=== PATIENT | male | born 1995 | race Hispanic/Latino ===

== ENCOUNTER 2017-05-09 05:56 | Day surgery (SDC) | payer BC ==
--- NOTE | 2017-05-09 06:54 | ED PDOC ---
Lower Extremity Pain/Injury Time Seen by Provider: 05/09/17 06:30 Chief Complaint (Nursing): Lower Extremity Problem/Injury Chief Complaint (Provider): Lower Extremity Problem/Injury History Per: Patient History/Exam Limitations: no limitations Onset/Duration Of Symptoms: Days (x 1 week) Current Symptoms Are (Timing): Still Present Additional Complaint(s): 21 year old male with a history of right foot fracture onset 1 week ago. he was diagnosed with a fracture 1 week ago (05/01/17). patient has not beared weight on it. Dr. Mckeon sent him here for evaluation. No other complaints. PMD: Dr. Salazar Past Medical History Reviewed: Historical Data, Nursing Documentation, Vital Signs Vital Signs: Last Vital Signs Temp 98.0 F 05/09/17 06:19 Pulse 74 05/09/17 06:39 Resp 16 05/09/17 06:19 BP 122/65 05/09/17 06:19 Pulse Ox 100 05/09/17 06:19 - Medical History Other PMH: right foot fracture - Surgical History Surgical History: Tonsillectomy - Family History Family History: States: Unknown Family Hx - Social History Current smoker - smoking cessation education provided: No Alcohol: None Drugs: Denies - Home Medications Home Medications: Ambulatory Orders Medication Instructions Recorded oxyCODONE/Acetaminophen [Percocet 1 tab PO Q4 PRN 05/09/17 5/325 mg Tab] - Allergies Allergies/Adverse Reactions: Allergies Allergy/AdvReac Type Severity Reaction Status Date / Time No Known Allergies Allergy Verified 05/09/17 06:21 Review of Systems ROS Statement: Except As Marked, All Systems Reviewed And Found Negative Musculoskeletal: Positive for: Foot Pain (right ) Physical Exam - Reviewed Nursing Documentation Reviewed: Yes Vital Signs Reviewed: Yes - Physical Exam Appears: Positive for: Non-toxic, No Acute Distress Head Exam: Positive for: ATRAUMATIC, NORMOCEPHALIC Skin: Positive for: Normal Color, Warm, Dry Eye Exam: Positive for: EOMI, Normal appearance, PERRL Neck: Positive for: Normal, Painless ROM, Supple Cardiovascular/Chest: Positive for: Regular Rate, Rhythm. Negative for: Murmur Respiratory: Positive for: Normal Breath Sounds. Negative for: Respiratory Distress Gastrointestinal/Abdominal: Positive for: Normal Exam, Soft Back: Positive for: Normal Inspection. Negative for: L CVA Tenderness, R CVA Tenderness Extremity: Positive for: Tenderness, Capillary Refill (< 2 secs), Swelling ( right ankle is swollen with hematoma on dorsum of foot) Neurologic/Psych: Positive for: Alert, Oriented - Laboratory Results Result Diagrams: 05/09/17 06:59 05/09/17 06:59 - ECG O2 Sat by Pulse Oximetry: 100 (RA) Pulse Ox Interpretation: Normal Medical Decision Making Medical Decision Making: Time: 06:49 Initial Plan: foot injury --blood type and screen --CMP --CBC --PTT --Prothrombin time --Chest x-ray --Foot x-ray --urinalysis Already called Dr. Mckeon to discuss the patient's admission. Time: 716 --Orthopedic on-call consult ordered with Dr. Zac Mckeon MD --Dr. Mike BETANCUR states to admit patient once all labs are back. --Patient declined pain medications. Scribe Attestation: Documented by Kiana Pearson, acting as a scribe for Marisela Bailey MD. Provider Scribe Attestation: All medical record entries made by the Scribe were at my direction and personally dictated by me. I have reviewed the chart and agree that the record accurately reflects my personal performance of the history, physical exam, medical decision making, and the department course for this patient. I have also personally directed, reviewed, and agree with the discharge instructions and disposition. Disposition - Clinical Impression Clinical Impression: Intractable pain, Foot fracture - Patient ED Disposition Is Patient to be Admitted: Transfer of Care - Disposition Disposition: Transfer of Care Disposition Time: 07:00 Condition: STABLE Patient Signed Over To: Nayeli Levy Handoff Comments: pending labs, imaging and a call back from Mike
[2017-05-09 07:09] LABS: BASO % 0.8 % (0.0-2.0); EOS # 0.4 K/uL (0.0-0.7); EOS % 8.6 % (0.0-4.0); HEMOGLOBIN 15.2 g/dL (12.0-18.0); LYMPH # 1.8 K/uL (1.0-4.3); LYMPH % 35.4 % (20.0-40.0); MEAN CELL VOLUME 90.6 fl (80.0-94.0); MEAN CORPUSCULAR HEMOGLOBIN 30.3 pg (27.0-31.0); MEAN CORPUSCULAR HGB CONC 33.5 g/dL (33.0-37.0); MONO # 0.6 K/uL (0.0-0.8); MONO % 11.4 % (0.0-10.0); NEUT # 2.2 K/uL (1.8-7.0); NEUT % 43.8 % (50.0-75.0); NRBC % 0.1 % (0.0-0.0); RBC 5.02 Mil/uL (4.40-5.90); RED CELL DISTRIBUTION WIDTH 13.3 % (11.5-14.5); WHITE BLOOD COUNT 5.1 K/uL (4.8-10.8)
[2017-05-09 07:20] LABS: ALB/GLOB RATIO 1.3 (1.0-2.1); ALBUMIN 4.3 g/dL (3.5-5.0); ALT/SGPT 37 U/L (21-72); AST/SGOT 27 U/L (17-59); BLOOD UREA NITROGEN 12 mg/dl (9-20); CALCIUM 9.4 mg/dL (8.4-10.2); GFR AFRICAN-AMERICAN > 60; GFR NON-AFRICAN AMERICAN > 60
[2017-05-09 07:21] LABS: INR 1.1 (0.9-1.2); PARTIAL THROMBOPLASTIN TIME 28.9 Seconds (25.6-37.1); PROTHROMBIN TIME 11.8 Seconds (9.8-13.1)
[2017-05-09 07:31] LABS: SQUAMOUS EPITHIAL < 1 /hpf (0-5); URINE BILIRUBIN NEGATIVE (NEGATIVE); URINE BLOOD NEGATIVE (NEGATIVE); URINE CLARITY CLEAR (Clear); URINE COLOR YELLOW (YELLOW); URINE GLUCOSE (UA) NEG (Normal); URINE LEUKOCYTE ESTERASE NEG Leu/uL (Negative); URINE PROTEIN NEGATIVE (NEGATIVE); URINE UROBILINOGEN 0.2-1.0 mg/dL (0.2-1.0)
--- NOTE | 2017-05-09 07:43 | ED PDOC ---
- Laboratory Results Result Diagrams: 05/09/17 06:59 05/09/17 06:59 - ECG O2 Sat by Pulse Oximetry: 100 (RA) Disposition - Clinical Impression Clinical Impression: Intractable pain, Foot fracture - POA Present On Arrival: Falls Or Trauma - Disposition Referrals: Marie Bass PA-C [Primary Care Provider] - Disposition: Admitted as In-Patient Disposition Time: 07:43 Condition: STABLE Forms: [employer] (Syrian) Addendum Addendum: 05/09/17 07:[address] Pt signed out [address] Antonio pending labs.
--- NOTE | 2017-05-09 08:20 | CP.SDSHP ---
Same Day Surgery H & P - History Proposed Procedure: Right foot fifth metatarsal fracture ORIF Pre-Op Diagnosis: Right foot fifth metatarsal fracture - Previous Medical/Surgical History Pain: 2.Mild Pain Previous Surgical History: Tonsillectomy - Allergies Allergies: Allergies No Known Allergies Allergy (Verified 05/09/17 06:21) - Current Medications Current Medications: none - Physical Exam General Appearance: No acute distress Vital Signs: Vital Signs 05/09/17 05/09/17 05/09/17 06:19 06:39 07:17 Temperature 98.0 F 98.2 F Pulse Rate 72 74 68 Respiratory 16 18 Rate Blood Pressure 122/65 145/80 O2 Sat by Pulse 100 99 Oximetry 05/09/17 05/09/17 07:28 07:43 Temperature Pulse Rate Respiratory Rate Blood Pressure O2 Sat by Pulse 100 100 Oximetry Mental Status: Alert & Oriented x3 Neuro: WNL Heart: WNL Lungs: WNL GI: WNL - {Optional Preform as Required} Abdomen: WNL Integument: WNL Ortho: Other (right foot: +swelling, +ecchymosis, + tenderness, sensation intact SP/DP/TN, motor intact EHL/FHL/TA/gastroc, pedal pulse intact) ENT: WNL - Impression Impression: Patient is a 21 y/o male with a right foot fifth metatarsal fracture who presents for a left foot 5th metatarsal fx ORIF. Risks and benefits of the procedure were explained to the patient and he agrees to proceed. Pt. Evaluated Today:Candidate for Anesthesia & Procedure: Yes - Date & Time Date: 05/09/17 Time: 08:23 Short Stay Discharge - Short Stay Discharge Admitting Diagnosis/Reason for Visit: INTRACTABLE FOOT PAIN,FOOT FRACTURE Disposition: HOME/ ROUTINE Referrals: Marie Bass PA-C [Primary Care Provider] -
--- NOTE | 2017-05-09 09:35 | RAD ---
HISTORY: ankle fracture COMPARISON: No prior. FINDINGS: LUNGS: No active pulmonary disease. PLEURA: No significant pleural effusion identified, no pneumothorax apparent. CARDIOVASCULAR: Normal. OSSEOUS STRUCTURES: No significant abnormalities. VISUALIZED UPPER ABDOMEN: Normal. OTHER FINDINGS: None. IMPRESSION: No active disease.
--- NOTE | 2017-05-09 09:36 | RAD ---
PROCEDURE: Right Foot Radiographs. HISTORY: foot fracture COMPARISON: None. FINDINGS: BONES: Minimally displaced comminuted fracture of the base of the 5th metatarsal. JOINTS: Normal. SOFT TISSUES: Regional soft tissue swelling. OTHER FINDINGS: None. IMPRESSION: Minimally displaced comminuted fracture of the base of the 5th metatarsal.
--- NOTE | 2017-05-09 09:38 | CARD ---
APPROVED REPORT EKG Measurement Heart [id number] AL [id number] <Conclusion> Normal sinus rhythm Early repolarization Normal ECG
[2017-05-09] MEDS ORDERED: Dexamethasone 4 mg/1 ml ONE (12:37)
[2017-05-09] MEDS ORDERED: MethylPREDNISolone Depo 40 mg/ml Inj ONE (12:37)
[2017-05-09] MEDS ORDERED: Bupivacaine 0.5% Inj(30mL) ONE (12:37)
[2017-05-09] MEDS ORDERED: Lidocaine 1% Inj (20ml) ONE (12:37)
[2017-05-09] MEDS ORDERED: Bupivacaine HCl 0.5% PF (10 ml) Inj ONE (12:45)
[2017-05-09] MEDS ORDERED: Propofol 10 mg/ml Inj (20 ML) ONE (12:49)
[2017-05-09] MEDS ORDERED: Rocuronium 10 mg/ml (5 ml) ONE (12:50)
[2017-05-09] MEDS ORDERED: Lidocaine 4% (Laryng-O-Jet) Kit MM ONE (12:50)
[2017-05-09] MEDS ORDERED: Succinylcholine 200 mg/10 ml Inj IV ONE (12:50)
[2017-05-09] MEDS ORDERED: Bacitracin Ointment 30 GM TUBE ONE (13:10)
[2017-05-09] MEDS ORDERED: Midazolam 2 MG/2 ML VIAL ONE (13:37)
[2017-05-09] MEDS ORDERED: Lactated Ringer's 1,000 ML IV ONE ×2 (13:50→15:30)
[2017-05-09] MEDS ORDERED: ePHEDrine 50 mg/ml Inj ONE (14:00)
[2017-05-09] MEDS ORDERED: Oxycodone/Acetaminophen 5/325 mg Tab PO PRN ×2 (16:19)
--- NOTE | 2017-05-09 16:22 | PCM.SURG1 ---
Surgeon's Initial Post Op Note - Surgeon's Notes Surgeon: Mike Cmm Programmer: 1st assist Allegra Pascual,PGY 1/ 2nd assist REBECCA Faust Type of Anesthesia: General Endo Anesthesia Administered By: DR Thomas([facility]) Pre-Operative Diagnosis: Displaced/rotated base 5th metatarsal fx Operative Findings: as above Post-Operative Diagnosis: as above Operation Performed: ORIF displaced/rotated base 5th metatarsal fx. primary repair peroneal tendon. allograft bone graft. applx Greyson Robert dressing and posterior splint. positioning of fluoro/interpreattion of video images Specimen/Specimens Removed: fx callous Estimated Blood Loss: EBL {In ML}: 5 Blood Products Given: N/A Drains Used: No Drains Post-Op Condition: Good Date of Surgery/Procedure: 05/09/17 Time of Surgery/Procedure: 14:55 (time in room/anaetsheisa indcution [id number])
[2017-05-09] MEDS ORDERED: Sodium Chloride 0.9% 1,000 ML IV ONE (16:35)
[2017-05-09] MEDS ORDERED: HYDROmorphone 0.5 mg/0.5 ml ISec IVP PRN (16:36)
[2017-05-09] MEDS ORDERED: Sodium Chloride 0.9% 1,000 ML IV SCH (16:45)
[2017-05-09 17:10] VITALS: RESP 18
--- NOTE | 2017-05-09 17:23 | RAD ---
PROCEDURE: Right Foot Radiographs. HISTORY: s/p right foot surgery COMPARISON: 05/09/2017 at 8:29 FINDINGS: BONES: Normal. No fractureInterval open reduction internal fixation of the prior right 5th metatarsal fracture with intra-articular extension. JOINTS: 1st metatarsal joint space narrowing -osteoarthrosis Hallux valgus orientation suggested SOFT TISSUES: Swelling with overlying bandaging noted OTHER FINDINGS: None. IMPRESSION: Status post recent postsurgical changes/fixation of the right 5th metatarsal fracture with intra-articular extension. Hardware intact. Anatomical alignment noted
[2017-05-09 18:13] VITALS: TEMP 97.6
[2017-05-09 18:59] VITALS: BP 122/78; PULSE 82
--- NOTE | 2017-05-10 10:34 | RAD ---
PROCEDURE: Intraoperative Fluoroscopy. . HISTORY: RIGHT FOOT FINDINGS: Fluoroscopic assistance was provided 9.7 seconds of fluoroscopy time utilized during this procedure. Radiation dose = .22 mGy Please refer to the operative for additional details.
--- NOTE | 2017-05-10 11:15 | OP ---
PROCEDURE DATE: 05/09/2017 PREOPERATIVE DIAGNOSIS: Displaced rotated base fifth metatarsal fracture. POSTOPERATIVE DIAGNOSIS: Displaced rotated base fifth metatarsal fracture. OPERATIVE FINDINGS: Displaced rotated base fifth metatarsal fracture. OPERATIVE PROCEDURE: 1. Open reduction and internal fixation of displaced rotated base right fifth metatarsal fracture. 2. Primary repair of peroneal tendon. 3. Allograft bone graft. 4. Application of Greyson Robert compression dressing and posterior splint. 5. Positioning of fluoroscope, interpretation of video images. SURGEON: Zac Mckeon MD SWIMMING TEACHER: Candido Pascual DPM, PGY-1 SECOND OUTREACH NURSE: Renuka Becker, certified registered nursing first aid officer. It should be noted that the operative procedure of the goal having obtained and that the operative procedure was accomplished only with the assistance of Renuka Becker, certified registered nursing first aid officer and she was essential to all portions of this surgical exercise. SPECIMENS: Fractured callus. ESTIMATED BLOOD LOSS: 5 mL. BLOOD PRODUCTS: No blood products given. DRAINS: No drains. POSTOPERATIVE CONDITION: Good. TIME OF SURGERY: Incision time 1455 hours, time in the room anesthesia induction time 1350 hours. OPERATIVE INDICATIONS: Steven Shields is a 21-year-old gentleman who was doing pull-ups and dropped down from the pull-up bar and sustained a torsional injury to the lateral aspect of the right foot. The right foot is the correct foot. The procedure is open reduction and internal fixation of the displaced and rotated right base fifth metatarsal fracture, right foot. The patient is a 21-year-old gentleman who was doing pull-ups who again sustained a fall from the pull-up bar onto the right foot on the lateral aspect. The patient had ecchymosis and inability to bear weight. The patient was seen in the emergency room, presented to [facility] with increasing pain, swelling, and inability to ambulate. The patient was admitted. X-rays were accomplished, which again revealed a displaced rotated base fifth metatarsal fracture. Pros, cons, risks and benefits of surgical approach were discussed. Possibility of benign neglect. The possibility of open reduction and internal fixation and the possibility of casting were all discussed. The patient wishes to return to his activities as soon as possible and the concept of casting followed by more prolonged physical therapy was discussed as opposed to open reduction and internal fixation, a period of splinting and then gentle range of motion to expedite the rehab process was most attractive to him. The patient opted for the open reduction. OPERATIVE PROCEDURE: After having obtained informed consent in the above fashion, after thoroughly discussing the possibility of mechanical failure, infection, thromboembolic disease, secondary or tertiary surgery, the patient identified as Steven Shields in the supine position with all bony prominences well padded. The right lower extremity was prepped and free draped in usual fashion for lower extremity surgery. Thigh tourniquet was employed. Under the surgeon's direction, the fluoroscope was positioned, video images were generated, therapeutic decisions were made therefrom. The displaced rotated base fifth metatarsal fracture was identified and at this point in time, the fracture site was manipulated. An incision was described two fingerbreadths proximal to the base of the fifth metatarsal dorsal medially to the metatarsal. After having obtained informed consent, after having identified side, site and procedure and a critical pause/time-out, after having obtained informed consent in the above fashion, the patient identified as Steven Shields in the supine position with all bony prominences well padded, after sterilely prepping and draping, the lower extremity was exsanguinated using a 6-inch Esmarch bandage, tourniquet, which had been applied, was inflated to 350 mmHg. An incision was described dorsal laterally two fingerbreadths proximal to the base of fifth metatarsal superficial to the metatarsal shaft. The skin incision was carried down through the skin and subcutaneous tissue. This having been accomplished, using a Hemostat dissection was carried out again dorsal medially. Branches of sural nerve were identified and grasped with a Romulo drain. This having been accomplished, the incision was carried down through the metatarsal. The fracture site was identified and was curetted with healing callus, periosteal sleeve was elevated anterior and posteriorly. A-O Hohmann retractors were placed. At this point in time, again noting the peroneal tendon, the fracture was mobilized using a quarter inch straight osteotome. This having been accomplished, the fracture was curetted of healing callus. The fracture was reduced and held with a towel clip bone holding clamp. At this point in time, a 1.6-mm K-wire was introduced intramedullary to hold the fixation and at this point in time, a longitudinal rent/tear was noted in the peroneal tendon insertion and the peroneus brevis insertion into the base of the fifth metatarsal. This having been accomplished, the hooked plate 2.0 mm was applied to the lateral aspect of the metatarsal. The fracture was reduced and with pressure, mild tapping using a bone tamp, the fracture was reduced and the distal aspect of the plate and locking screws applied to the first hole using a 1.5 drill bit, followed by sounding, followed by introduction of the appropriate size screw. At this point in time, the fracture was reduced and held with the hook. The more proximal hole again in the locking mode was drilled, sounded and the appropriate size screws placed. It should be noted that after curetting of the fracture callus, 0.50 of DBX allograft was employed to the base of the fifth metatarsal fracture, so allograft bone grafting is a portion of the procedure as well. This having been accomplished with the plate on the lateral aspect of the fifth metatarsal with the fracture reduced, each sequential drill hole was drilled, tapped and the appropriate size screws placed in the locking mode. The most distal screw was placed in the non-locking mode using drill bit followed by sounding with the depth gauge, again the appropriate size screw was placed. Verification of position was offered on AP and lateral image intensification views. At this point in time, the peroneal tendon insertion into the base of the fifth metatarsal was identified and using interrupted FiberWire nonabsorbable suture, the peroneal tendon was repaired. Peroneal tendon repair having been accomplished, the wound was thoroughly irrigated. Bone grafting was again accomplished. Closures in layers with interrupted Vicryl and 2-0 Quill. Steri-Strips were applied, well-padded Greyson Robert compression dressing and a posterior splint was applied. Zac Mckeon MD
[2017-05-12 21:10] VITALS: O2SAT 100
== END 2017-05-09 19:45 | disposition home or self-care (01) ==
LOC: H.ER 05:56 → UNDOADMIN 07:38 → H.SDS 07:38 → H.ERHOLD 07:38 → H.SDS 19:45
PROVIDERS: ATTEND Orthopaedic Surgery
DX: S92.351A Displaced fracture of fifth metatarsal bone, right foot, initial encounter for closed fracture (principal); W19.XXXA Unspecified fall, initial encounter; Y93.89 Activity, other specified; Y92.89 Other specified places as the place of occurrence of the external cause
CPT/HCPCS: 28200; 28485; 28899; 71045; 73630; 80053; 81003; 85025; 85610; 85730; 86850; 86900; 87086; 93005; 99285; J0171; J0330; J0690; J2001; J2250; J2704; J3010; J7040; J7120